=== PATIENT | female | born 1990 | race Two or more races ===

== ENCOUNTER 2025-04-13 21:01 | Emergency (ER) | payer MEDICAID, SELFPAY ==
[2025-04-13 21:02] VITALS: BMI 29.8
--- NOTE | 2025-04-13 22:56 | PC.NURSE ---
PATIENT STATED THAT SHE WAS FEELING BETTER AND THAT SHE WAS GOING TO LEAVE. PATIENT ENCOURAGED TO STAY AND SEE PROVIDER. PATIENT STATED THAT SHE WAS GOING TO LEAVE SINCE SHE FELT BETTER.
== END 2025-04-13 22:56 | disposition left against medical advice (07) ==
LOC: SERX 21:42
PROVIDERS: Emergency Provider Emergency Medicine
DX: Z53.21 Procedure and treatment not carried out due to patient leaving prior to being seen by health care provider (principal)

== ENCOUNTER 2025-08-01 19:22 | Inpatient (IN) | payer MEDICAID, SELFPAY ==
[2025-08-01] VITALS (43 sets, daily range): BP systolic 106–157; BP diastolic 62–96; PULSE 66–83; RESP 20–100; TEMP 36.8; O2SAT 98–100; BMI 34.4
[2025-08-01 16:33] LABS: Collection Type, Urine Clean Catch
[2025-08-01 16:40] LABS: Basophils # (Auto) 0.0 Thou/mm3 (0.0-0.2); Basophils % (Auto) 0 % (0-2.5); Eosinophils # (Auto) 0.0 Thou/mm3 (0.0-0.5); Eosinophils % (Auto) 1 % (0-10); Hematocrit 34.2 % (36.0-46.0); Hemoglobin 11.2 g/dL (12.0-16.0); Immature Granulocytes Auto 0.02 Thou/mm3 (0.00-0.00); Lymphocytes # (Auto) 1.7 Thou/mm3 (1.0-4.8); Lymphocytes % (Auto) 27 % (10-50); Mean Corpuscular HGB Conc 32.7 g/dl (31.0-37.0); Mean Corpuscular Hemoglobin 26.1 pg (25.0-35.0); Mean Corpuscular Volume 80 fL (80-100); Monocytes # (Auto) 0.5 Thou/mm3 (0.0-0.8); Monocytes % (Auto) 9 % (0-12); Neutrophils # (Auto) 4.0 Thou/mm3 (1.8-7.7); Neutrophils % (Auto) 64 % (37-80); Nucleated Red Blood Cell # 0.00 Thou/mm3 (0.00-0.00); Nucleated Red Blood Cell % 0 /100 WBC (0); Platelet Count 112 Thou/mm3 (140-440); RDW Standard Deviation 35.7 fL (36.4-46.3); Red Blood Count 4.29 Miln/mm3 (4.00-5.20); White Blood Count 6.3 Thou/mm3 (3.6-11.0)
[2025-08-01 16:46] LABS: Creatinine,Random Urine 131 mg/dL (30-125); Protein Total, Random Urine 69 mg/dL (1-14)
[2025-08-01 16:52] LABS: Bilirubin,Urine Negative (Negative); Blood,Urine Negative (Negative); Color,Urine Yellow (Lt Yel-Yel); Glucose, Urine Negative (Negative); Ketones,Urine Negative (Negative); Leukocyte Esterase,Urine Positive (Negative); Nitrite,Urine Negative (Negative); PH,Urine 6.0 (5.0-7.0); Protein,Urine 1+ (Neg - Trace); RBC,Urine 4 /hpf (0-3); Specific Gravity,Urine 1.025 (1.001-1.035); Squamous Epithelial Cell,Urine 3 /hpf (0-5); Urobilinogen,Urine Negative mg/dL (0.0-1.0); WBC,Urine 2 /hpf (0-5)
[2025-08-01 16:53] LABS: Alanine Aminotransferase 11 U/L (10-49); Albumin, Serum 3.5 gm/dL (3.5-5.0); Albumin/Globulin Ratio 1.5 (1.2-2.2); Alkaline Phosphatase 100 U/L (46-116); Anion Gap 10 (7-16); Aspartate Amino Transferase 16 U/L (0-34); BUN/Creatinine Ratio 10 Ratio (12-20); Bilirubin,Total 0.3 mg/dL (0.3-1.2); Blood Urea Nitrogen 6 mg/dL (9-23); Calcium 9.5 mg/dL (8.3-10.6); Calcium (Corrected) 9.9 mg/dL (8.5-10.1); Carbon Dioxide 20.4 mMol/L (20.0-31.0); Chloride 108 mMol/L (98-107); Creatinine (Component) 0.6 mg/dL (0.6-1.3); Estimated Creatinine Clearance 137.9 mL/min (>60); Globulin 2.3 gm/dL (2.3-3.5); Glucose 68 mg/dL (74-106); LDH (Lactate Dehydrogenase) 192 U/L (120-246); Osmolality,Calculated 271 (275-295); Potassium 4.0 mMol/L (3.4-5.1); Sodium 138 mMol/L (136-145); Total Protein 5.8 gm/dL (5.7-8.2); Uric Acid 5.0 mg/dL (3.1-7.8); eGFR > 60 See Note
[2025-08-01 16:54] LABS: Fibrinogen 441 mg/dL (175-375); INR 0.9 (0.9-1.3); Partial Thromboplastin Time 25.6 Seconds (22.0-36.0); Prothrombin Time 10.4 Seconds (9.0-12.2)
[2025-08-01 16:56] LABS: Clarity,Urine Clear (Clear/Hazy)
--- NOTE | 2025-08-01 17:14 | XR_ITS ---
Examination: age Limited Technique: Limited transabdominal sonographic images pelvis Date and time: August 01, 2025 1723 hrs. Indications: Unknown presentation Findings: presentation cephalic spine maternal left Cardiac motion 132 BPM Placenta posterior grade 2 Impression: Viable intrauterine gestation cephalic presentation
--- NOTE | 2025-08-01 18:07 | ESHP_ITS ---
RE: NBA VERMA : 1990 DATE OF ADMISSION: 08/01/2025 HISTORY OF PRESENT ILLNESS: This is a 34-year-old 4, para 3-0-0-3 with due date of 08/17 with intrauterine at 37 weeks and 5 days who had elevated blood pressure in the office today 140/90 with 2+ urine protein, so she was sent to [facility] for workup and evaluation to rule out preeclampsia. The patient's care was complicated by Class B diabetes mellitus for which the patient is well controlled on insulin. She also had a borderline echocardiogram with the planishing press operator finding increased flow velocity seen across the aortic arch and ductal arch with normal caliber at the level of the aortic isthmus and these findings do not prevent the patient from delivering at [facility]. The recommendation by planishing press operator is for the to undergo a four- extremity blood pressure measurement after delivery and if abnormal blood pressure measurement or any other questions or concerns after delivery to contact the [facility] Cardiology Department. The patient denies any headache, change in vision or right upper quadrant pain. She reports some lower extremity swelling. Her most recent Maternal- Medicine ultrasound on 07/21 showed overall growth at the 63rd percentile with a weight of 6 pounds 9 ounces and an increased amniotic fluid index of 33. The patient has had gestational thrombocytopenia in her with her platelet count ranging from 109-125. She underwent a 24-hour urine collection on 07/03/2025, and her 24-hour urine protein was 199. Her blood sugars have been controlled with insulin. Her hemoglobin A1c was 7.4 at first visit. The urine protein creatinine ratio is 0.5 suggesting preeclampsia. MEDICATIONS: 1. Humulin NPH 36 units before breakfast and 14 units at bedtime. 2. Humalog 18 units with breakfast and 14 units at dinner. 3. Aspirin 81 mg 1 p.o. daily. 4. vitamin 1 p.o. daily. ALLERGIES: NO KNOWN DRUG ALLERGIES. PAST MEDICAL HISTORY: Class B diabetes mellitus, gestational thrombocytopenia, advanced maternal age. FAMILY HISTORY: Denies. OB HISTORY: In 2006, 40 week, normal vaginal delivery, male. No complications. In 2008, 40 week, normal vaginal delivery, male, no complications. In 2011, 40 week, normal vaginal delivery, female, no complications. PAST SURGICAL HISTORY: Denies. REVIEW OF SYSTEMS: She denies any chest pain, palpitations, cough, fever, shortness of breath or lower extremity pain. She denies any headache, change in vision or right upper quadrant pain. PHYSICAL EXAMINATION: VITAL SIGNS: Blood pressure is 142/96, heart rate 88, respirations 18, temperature 98.6. HEENT: Oropharynx and sclerae are clear. LUNGS: Clear to auscultation bilaterally. HEART: Regular rate and rhythm. ABDOMEN: Gravid consistent with 7.5 pounds. EXTREMITIES: Nontender. SKIN: No gross rashes or lesions. NEUROLOGIC: No focal deficits. ASSESSMENT: Intrauterine at 37 weeks and 5 days. Class B diabetes mellitus, preeclampsia without severe features, gestational thrombocytopenia, polyhydramnios. PLAN: Induction of labor. Informed consent was obtained. The patient is made aware of the risks, complications, alternatives, and benefits of operative vaginal delivery and delivery, agrees with these modes of delivery if indicated. She is made aware of the risks, complications, alternatives, and benefits of induction of labor and she agrees. DT: 17:06:45 TT: 18:06:00 Ref: [id number] - TID: [id number] MTDD
[2025-08-01 20:02] LABS: Syphilis Nonreactive (Nonreactive)
[2025-08-01] MEDS: RINGERS LACTATED 1000 ML 1,000 ML 100 ML IV (23:18)
[2025-08-01] MEDS: INSULIN NPH 1 UNIT/0.01 ML (PER UNIT) 14 UNIT SC (23:54)
[2025-08-01] MEDS: INSULIN HUM REGULAR 1 UNIT/0.01 ML (PER UNIT) 2 UNIT SC (23:56)
[2025-08-02] VITALS (170 sets, daily range): BP systolic 106–170; BP diastolic 60–98; PULSE 60–108; RESP 15–24; TEMP 36.7–37.2; O2SAT 88–100
[2025-08-02 04:27] LABS: Amphetamine/Metham Scrn,Ur OB Negative (Negative); Benzoylecgonine Screen, Ur OB Negative (Negative); Opiate Screen,Urine OB Negative (Negative); THC Screen,Urine OB Negative (Negative)
[2025-08-02] MEDS: RINGERS LACTATED 1000 ML 1,000 ML 100 ML IV (06:27)
--- NOTE | 2025-08-02 07:09 | PD.LDPN ---
Documentation for date of: 08/02/25 OB Labor Progress Note Pelvic Exam Dilation (cm): closed Effacement (%): thick Amniotic membrane status: Intact Comments: See RN notes Contractions Monitor mode: External Contraction frequency: 1-4 Contraction pattern: Coupling Contraction intensity: Mild Status status: Category ll Assessment and Plan Comments: Cervical Ripening in Progress Intact Category 2 tracing. Keep NPO Anticipate .
[2025-08-02] MEDS: TERBUTALINE SULF INJ 1 MG/ML VIAL 0.25 MG SC (09:32)
[2025-08-02] MEDS: FAMOTIDINE INJ 10 MG/ML VIAL 2 ML 20 MG IV (10:35)
[2025-08-02] MEDS: ceFAZolin/D5W 2 GM IV 2 GM/100 ML BAG IV (10:35)
[2025-08-02] MEDS: CITRIC ACID/SODIUM CITR 15 ML UDC (BICITRA) 30 ML PO (10:35)
--- NOTE | 2025-08-02 10:47 | PD.LDPN ---
Documentation for date of: 08/02/25 OB Labor Progress Note Pelvic Exam Dilation (cm): closed Effacement (%): thick Amniotic membrane status: Intact Contractions Monitor mode: External Contraction frequency: 1-4 Contraction pattern: Coupling Contraction intensity: Mild Status status: Category ll Assessment and Plan Comments: Category 2 tracing trending to category 3 delivery Informed consent was obtained. The patient was made aware of the risks, complications, alternatives and benefits of the proposed procedure and she agrees..
--- NOTE | 2025-08-02 10:54 | ESDS_ITS ---
DS: Providers Provider Date of admission: 08/01/25 19:22 Primary care physician: Physician No Primary/Family Admitting Provider: Delvis Taylor MD Attending Provider on Admission: Delvis Taylor MD Attending Provider on DC: Delvis Taylor MD Discharging Provider: Delvis Taylor MD DS: Diagnosis Problem List Completed Was Problem List Reviewed/Reconciled?: Yes Summary/Hosp Course Peripartum Data Procedures: Procedures Operation Date: 08/02/25 10:30 Actual Procedure Side Surgeon p in OB Delvis Taylor MD Time Spent with Patient Time attestation: Total time spent providing and/or coordinating discharge services: Exam Vital Signs Temp Pulse Resp BP Pulse Ox O2 Del Method 98.1 F 86 20 133/81 H 100 Room Air 08/02/25 05:07 08/02/25 10:32 08/01/25 15:45 08/02/25 10:32 08/02/25 10:35 08/01/25 15:45 Discharge Plan Plan Patient Disposition: HOME (Self Care) Patient condition on transfer: Stable Prescriptions/Referrals Prescriptions/Med Rec: New hydrocodone-acetaminophen 5-325 mg tablet 1 tab PO Q6H MDD 4 PRN (Reason: pain) Qty: 20 0RF ibuprofen 600 mg tablet 600 mg PO Q6H PRN (Reason: pain) Qty: 30 0RF Continued vitamin 5-ytrp-SO-dss 27-1-50 mg tablet 1 tab PO QDAY Referrals: No Primary/Family,Physician [Primary Care Provider] Patient/Caregiver Discharge Instructions Discharge Activity: activity as tolerated Other Discharge Activity Instructions:: Follow up office 1 week. Education Materials: C Section Dc Print Language: Syriac Stand Alone Forms: Kady Award Info., Patient Portal Info Letter Discharge Order Discharge Orders: Discharge (Routine); Ordered 08/04/25 Ordered By: Delvis Taylor Planned Discharge Date 08/04/25
--- NOTE | 2025-08-02 10:54 | PD.GYNPROC ---
Operative Note - REGIONAL DIRECTOR OF ADMISSIONS Procedure Date of procedure: 08/02/25 Procedure Performed: Primary low-transverse section via Pfannenstiel skin incision Indication: IUP 37 weeks 6 days Class B diabetes mellitus Preeclampsia without severe features Gestational thrombocytopenia Polyhydramnios Induction of labor Category 2 tracing trending toward category 3 Pre-Op diagnosis: IUP 37 weeks 6 days Class B diabetes mellitus Preeclampsia without severe features Gestational thrombocytopenia Polyhydramnios Induction of labor Category 2 tracing trending toward category 3 Post-Op diagnosis: IUP 37 weeks 6 days Class B diabetes mellitus Preeclampsia without severe features Gestational thrombocytopenia Polyhydramnios Induction of labor Category 2 tracing trending toward category 3 Anesthesia type: Spinal Procedure description: After proper informed consent was obtained and the patient was made aware of the risks, complications, alternatives and benefits of the proposed procedure she was taken to the operating room where she underwent induction of spinal anesthesia. She was prepped and draped in the usual sterile fashion. A timeout was performed.? A Pfannenstiel skin incision was made with the scalpel and carried through to the underlying layer of fascia with the Bovie. The fascia was nicked in the midline incision and the incision was extended bilaterally with the Bovie. The inferior aspect of the fascial incision was grasped with Claudia clamps elevated and the underlying rectus muscle dissected off with the Bovie. The superior aspect the fascial incision was grasped with Claudia clamps elevated and the underlying rectus muscle dissected off with the Bovie. The rectus muscles were in the midline. The peritoneum was grasped between 2 Tamez clamps and entered sharply with the Metzenbaum scissors. The peritoneum was extended superiorly and inferiorly with good visualization of the bladder. The vesicouterine peritoneum was incised transversely and the bladder flap created digitally. A Padilla blade was inserted. A low transverse incision was made in the uterus with a scapel and the incision was extended digitally. The 's head delivered and the mouth and nose were suctioned with the bulb suction. The shoulder and body delivered atraumatically. The cord was clamped after 30 second delayed cord clamping and the cord was cut.? The infant was handed off to the waiting Pediatric staff, cord blood was collected for lab testing. The placenta was removed complete and intact. The uterus was exteriorized and cleared of all clots and debris. The uterine incision was closed with #1-0 chromic catgut suture in a running interlocking fashion. A second layer of the same suture was used to imbricate the first layer and obtain excellent hemostasis. The vesicouterine peritoneum was closed with 2-0 chromic catgut suture in a running fashion. The firm uterus was returned to the abdomen. The gutters were cleared of all clots and debris. The peritoneum was closed with 0 chromic catgut suture in running fashion. The rectus muscle was closed with 0 chromic catgut suture. The fascia was closed with 0 Vicryl beginning at each angle and ending in the center in a running fashion. The subcutaneous tissue was irrigated with warmed normal saline solution and found to be hemostatic. The subcutaneous tissue was closed with 2-0 chromic catgut suture in a running fashion. The skin was closed with 4-0 Monocryl. A Dermabond Prineo dressing was applied and a sterile pressure dressing was applied.? She tolerated the procedure well. Counts were correct. I discussed with the patient the nature of her condition, intraoperative findings and expectation for recovery all? questions answered. Findings: Live female infant Amniotic fluid clear (polyhdramnios) Cephalic Apgars see RN notes Placenta removed complete intact Uterus ovaries and fallopian tubes grossly within normal limits Surgical staff Operation Date: 08/02/25 10:30 Case Staff LOADING UNIT OPERATOR POWDER CHARGING: Luis Boucher RNhotbed lever operator: Breezy Manzano Diagnosis Discharge Diagnosis (1) Pregestational diabetes mellitus, modified White class B: Status: Acute (2) Pre-eclampsia: Status: Acute (3) Polyhydramnios affecting : Status: Acute (4) delivery delivered: Status: Acute Problem List Completed Was Problem List Reviewed/Reconciled?: Yes (2) Pre-eclampsia Qualifiers: Trimester: third trimester Qualified Code(s): O14.93 - Unspecified pre-eclampsia, third trimester
[2025-08-02] MEDS: SIMETHICONE 80 MG CHEW PO (12:01)
--- NOTE | 2025-08-02 12:21 | PD.LDDELS ---
Data ([facility]) Data Hx Section: No : 4 Term: 2 : 1 Livin Abortions: Spontaneous & Theraputic: 0 Delivery Data ([facility]as) Labor Data Initiation of labor: Induction Induction/Augmentation Agent: Cytotec-PO and Cervidil ROM date: 08/02/25 ROM time: 11:07 Amniotic membrane rupture type: Artificial Amniotic fluid description: Clear Delivery Data EDC: 08/17/25 EDC calculated by:: LMP/early US confirmation Onset of labor date: 08/02/25 Onset of labor time: 11:07 Complete dilation date: 08/02/25 Complete dilation time: 11:07 delivery date: 08/02/25 delivery time: 11:07 Gestational age (weeks): 37 Gestational age (days): 6 Placenta delivery date: 08/02/25 Placenta delivery time: 11:08 Stage 1 total time: Labor - Stage 1 Duration 0 minutes Delivered by: Gefanta Delivery nurse: Vivian Nashorn nurse: Ad Bonding Agent at delivery: Yes (Gheom) Support person(s) at delivery: FOB Other staff at delivery: MACRINA Tijerina, OB OR TECH Delivery Method Delivery method: Low Transverse Presentation: Vertex position: OP Anesthesia Type Anesthesia Type: Spinal Anesthesia type: Spinal Placenta Placenta delivery description: Manual Removal Cord blood sent to lab: Yes cord blood collection: Cord Blood Type Episiotomy Episiotomy description: None EBL Estimated blood loss (ml): 500 Umbilical Cord cord description: 3 Vessels Complications Complications: None [place] Data ([facility]as) Data order: 1 [place]'s gender: Female Identification band number: [id number] weight (gms): 8 lb 8.157 oz Weight (pounds): 8 lbs and 8.2 ozs [place] length: 20.5 in 1 minute: 8 5 minutes: 9
[2025-08-02] MEDS: KETOROLAC INJ 30 MG/ML VIAL IVP (15:48)
[2025-08-02] MEDS: OXYTOCIN in NS 20 units 20 UNIT/1,000 ML BAG 125 UNIT IV (16:03)
[2025-08-02 21:19] LABS: Basophils # (Auto) 0.0 Thou/mm3 (0.0-0.2); Basophils % (Auto) 0 % (0-2.5); Eosinophils # (Auto) 0.0 Thou/mm3 (0.0-0.5); Eosinophils % (Auto) 0 % (0-10); Hematocrit 33.1 % (36.0-46.0); Hemoglobin 10.7 g/dL (12.0-16.0); Immature Granulocytes Auto 0.03 Thou/mm3 (0.00-0.00); Lymphocytes # (Auto) 1.2 Thou/mm3 (1.0-4.8); Lymphocytes % (Auto) 13 % (10-50); Mean Corpuscular HGB Conc 32.3 g/dl (31.0-37.0); Mean Corpuscular Hemoglobin 26.0 pg (25.0-35.0); Mean Corpuscular Volume 81 fL (80-100); Monocytes # (Auto) 0.6 Thou/mm3 (0.0-0.8); Monocytes % (Auto) 6 % (0-12); Neutrophils # (Auto) 7.5 Thou/mm3 (1.8-7.7); Neutrophils % (Auto) 81 % (37-80); Nucleated Red Blood Cell # 0.00 Thou/mm3 (0.00-0.00); Nucleated Red Blood Cell % 0 /100 WBC (0); Platelet Count 99 Thou/mm3 (140-440); RDW Standard Deviation 35.7 fL (36.4-46.3); Red Blood Count 4.11 Miln/mm3 (4.00-5.20); White Blood Count 9.3 Thou/mm3 (3.6-11.0)
[2025-08-02] MEDS: RINGERS LACTATED 1000 ML 1,000 ML 999 ML IV (21:35)
--- NOTE | 2025-08-02 23:45 | PC.NURSE ---
Dr. Taylor was notified by this nurse regarding patient's BP 147/88 HR 66 and patient's low urine output. New orders were given.
[2025-08-03] MEDS: KETOROLAC INJ 30 MG/ML VIAL IVP ×2 (01:04→11:28)
[2025-08-03] MEDS: RINGERS LACTATED 1000 ML 1,000 ML 100 ML IV (03:14)
[2025-08-03 03:20] VITALS: BP 137/90; PULSE 67; RESP 16; TEMP 36.8; O2SAT 99
[2025-08-03 07:10] VITALS: BP 138/88; PULSE 67; RESP 20; TEMP 36.5; O2SAT 98
--- NOTE | 2025-08-03 07:31 | ESPR_ITS ---
RE: NBA VERMA : 1990 DATE OF SERVICE: 08/03/2025 S: Postop day 1. The patient had decreased urine output yesterday, which responded to a fluid bolus. She denies any chest pain, palpitations, cough, fever, shortness of breath or lower extremity pain. She denies any headache, change in vision or right upper quadrant pain. O: VITAL SIGNS: Blood pressure is 137/90, heart rate 67, respirations 16, temperature 98.3, pulse oximetry is 99% on room air. LUNGS: Clear to auscultation bilaterally. HEART: Regular rate and rhythm. ABDOMEN: Dressing dry and intact. Fundus is firm. EXTREMITIES: Nontender. LABORATORY DATA: Hemoglobin pre-delivery is 11.2, post-delivery is 10.7, platelet count is 99,000. ASSESSMENT AND PLAN: Postoperative day #1 status post delivery, class B diabetes mellitus. Continue ADA diet. Preeclampsia without severe features, stable blood pressures, no need for antihypertensives at this time, gestational thrombocytopenia with stable platelet count, expect spontaneous resolution of low platelet count without any clinical significance at this time. Possible discharge home tomorrow. DT: 07:07:44 TT: 07:29:00 Ref: [id number] - TID: [id number]
[2025-08-03] MEDS: DOCUSATE SOD 100 MG CAPSULE PO (08:14)
--- NOTE | 2025-08-03 09:28 | PC.CC ---
0900-ASW met with pt at bedside to complete the initial OB assessment. Pt reports she was late to care due to lack of appointment availability. Pt reports once she started her care, she remained consistent with care. Pt denied substance use/abuse during and denies CWS/CPS hx. Pt reports she receives cruz aid in the amount of $600, Food stamps in the amount of $1,300, as well as medi-win and WIC. Pt reports she has strong support at home from family. Pt reports the FOB is involved and his name is Pro Vanegas. Pt reports the FOB will be their transportation home. Pt states she was around 36 weeks gestation and delivered via . Pt reports the female was not on lights but is in the NICU because of low blood sugar. Pt is formula feeding. Pt delivered on 08/02/25. Pt states her OB was Dr. Taylor and the infants Peds will be Dr. Story from [facility]. Pt states she has 3 other children at home, ages 17, 16, 13 and now the . Pt denies using DME/O2 at home and does her own ADLs. Pt states she is ready for the infant and has all she needs at home for the infant, such as clothing, diapers and a car seat. No SS concerns at this time. No CWS /CPS report needed. ASW provided community resources such as the [facility] community resource guide and [facility] services if needed. ASW talked about the signs of post depression and pt understood and stated she would seek help if need be.
[2025-08-03 11:15] VITALS: BP 145/90; PULSE 68; RESP 20; TEMP 36.7; O2SAT 98
[2025-08-03 15:10] VITALS: BP 133/84; PULSE 78; RESP 20; TEMP 36.4; O2SAT 98
[2025-08-03] MEDS: IBUPROFEN TAB 400 MG TABLET 800 MG PO (16:19)
--- NOTE | 2025-08-03 16:24 | PC.NURSE ---
RN OFFERED BREAST PUMP TO PATIENT PATIENT DECLINED
[2025-08-03 20:00] VITALS: BP 137/88; PULSE 94; RESP 18; TEMP 36.4; O2SAT 97
[2025-08-03] MEDS: INSULIN LISPRO (AdmeLOG) 1 UNIT/0.01 ML UNIT SC (20:14)
[2025-08-03] MEDS: ACETAMINOPHEN 325 MG TABLET 650 MG PO (22:41)
[2025-08-04] VITALS: BP 127/84; PULSE 70; RESP 16; TEMP 36.7; O2SAT 98
[2025-08-04 04:00] VITALS: BP 126/80; PULSE 86; RESP 17; TEMP 36.7; O2SAT 98
[2025-08-04] MEDS: ACETAMINOPHEN 325 MG TABLET 650 MG PO (04:31)
--- NOTE | 2025-08-04 06:31 | ESPR_ITS ---
RE: NBA VERMA : 1990 DATE OF SERVICE: 08/04/2025 SUBJECTIVE: Postop day #2, patient denies any problems or complaints. She is voiding. She is ambulating. She is tolerating a regular diet. She is passing flatus. She denies any excessive vaginal bleeding. She denies any dizziness or lightheadedness. She denies any chest pain, palpitations, shortness of breath or lower extremity pain. OBJECTIVE: Vital Signs: Blood pressure 126/80, heart rate 86, respirations 17, temperature is 98.0, and pulse oximetry is 98% on room air. Lungs: Clear to auscultation bilaterally. Heart: Regular rate and rhythm. Abdomen: Incision clear and intact. Fundus is firm. Extremities: Nontender. ASSESSMENT: Postoperative day #2, status post delivery. PLAN: Discharge home on ADA diet. Follow up in the office in 1 week. DT: 05:44:24 TT: 06:29:00 Ref: [id number] - TID: [id number]
[2025-08-04 07:16] VITALS: BP 130/85; PULSE 70; RESP 16; TEMP 36.7; O2SAT 98
[2025-08-04] MEDS: DOCUSATE SOD 100 MG CAPSULE PO (07:59)
[2025-08-04] MEDS: IBUPROFEN TAB 400 MG TABLET 800 MG PO (07:59)
[2025-08-04 11:06] VITALS: BP 135/85; PULSE 73; RESP 17; TEMP 36.7; O2SAT 98
[2025-08-04 11:30] LABS: Chlamydia trachomatis PCR Negative (Not Detect); Neisseria Gonorrhoeae DNA PCR Negative (Not Detect); Trichomonas Negative (Negative)
== END 2025-08-04 12:20 | disposition home or self-care (01) | DRG 540 ==
LOC: S4S1 19:23 → S4SX 19:25 → S4NX 08-02 10:55
PROVIDERS: Admitting Provider Specialist; Referring Provider Specialist; Visit Provider Specialist
PROC: 10D00Z1 Extraction of Products of Conception, Low, Open Approach (ICD-10-PCS; CPT 59514; principal; 2025-08-02 10:15)
DX: O14.04 Mild to moderate pre-eclampsia, complicating childbirth (principal); O24.32 Unspecified pre-existing diabetes mellitus in childbirth; O40.3XX0 Polyhydramnios, third trimester, not applicable or unspecified; O99.12 Other diseases of the blood and blood-forming organs and certain disorders involving the immune mechanism complicating childbirth; D69.59 Other secondary thrombocytopenia; Z37.0 Single live birth; Z3A.37 37 weeks gestation of pregnancy; Z79.82 Long term (current) use of aspirin; Z79.4 Long term (current) use of insulin
CPT/HCPCS: 36415; 59025; 76815; 80053; 80307; 81001; 82570; 83615; 84156; 84550; 85025; 85384; 85610; 85730; 86780; 86850; 86900; 86901; 87081; 87086; 87491; 87591; 87661; A4217; A4314; A4649; J0689; J1815; J1885; J2274; J2371; J2590; J3105; J3490; J7120; A9270; J2270